=== PATIENT | female | born 1995 | race Caucasian/White ===

== ENCOUNTER 2019-01-13 02:57 | Emergency (ER) | payer BC, OTHER ==
[~2019-01-13] VITALS: Ht 149.9 cm; Wt 40.4 kg
--- NOTE | 2019-01-13 03:10 | NUR ---
PT BIB EMS. PT AAOX4. AMBULATORY. PER EMS PTS FRIENDS CALLED DUE TO THE PT LOCKING HERSELF IN THE BATHROOM. +ETOH. -SI. -HI. PT IS CRYING AND IN DISTRESS. PLACED ON MONTOR AND PULSE OX. AT BEDSIDE FOR EVAL.
[2019-01-13] MEDS ORDERED: LORAZEPAM 1 MG TABLET ONE (03:12)
[2019-01-13] MEDS ORDERED: LORAZEPAM 1 MG TABLET PO ONE (03:30)
--- NOTE | 2019-01-13 04:00 | NUR ---
PT RESTING IN BED. [employer] AT BEDSIDE. VSS.
--- NOTE | 2019-01-13 04:32 | NUR ---
Patient discharged to home in stable condition. Written and verbal after care instructions given. Patient verbalizes understanding of instruction. Pt ambulatory with a steady gait.
[2019-01-13 04:33] VITALS: BP 124/84
== END 2019-01-13 04:34 | disposition home or self-care (01) ==
LOC: ER 03:01
DX: F41.0 Panic disorder [episodic paroxysmal anxiety] (principal); F32.9 Major depressive disorder, single episode, unspecified; F43.10 Post-traumatic stress disorder, unspecified; F17.200 Nicotine dependence, unspecified, uncomplicated